=== PATIENT | female | born 1985 | race American Indian/Alaskan Native ===

== ENCOUNTER 2018-08-17 14:34 | Emergency (ER) | payer SELFPAY ==
--- NOTE | 2018-08-17 15:12 | Emergency Department Report ---
ED ENT HPI - General Chief complaint: Dental/Oral Stated complaint: TEETH/HEAD/NOSE PAIN Time Seen by Provider: 08/17/18 14:57 Source: patient Mode of arrival: Ambulatory Limitations: No Limitations - History of Present Illness Initial comments: Christine is a healthy 33-year-old female who had cold symptoms for several days. She has nasal congestion and right ear pain. + she has right tooth right sinus pain. Toothache right upper posterior right ridge. No shortness breath. Denies fever or trouble swallowing. Severe pain radiating to the right ear in spite Tylenol and ibuprofen. MD complaint: tooth pain, ear pain -: Gradual, days(s) (sever) Location: R ear, tooth # (1, 2, 3) Severity: severe Quality: aching, dull Consistency: constant Improves with: pressure Associated Symptoms: toothache - Related Data Home Medications Medication Instructions Recorded Confirmed Last Taken Pnv with Ca,No.71/Iron/FA 1 tab PO DAILY 06/24/14 06/25/14 06/08/14 [ Vitamin Tablet] Previous Rx's Medication Instructions Recorded Last Taken Type HYDROcodone/APAP 5-325 [[place] 1 each PO Q6H PRN #20 tablet 06/25/14 Unknown Rx 5-325 mg TAB] Ibuprofen [Motrin 800 MG tab] 800 mg PO Q8H PRN #90 tablet 06/25/14 Unknown Rx HYDROcodone/APAP 5-325 [[place] 1 each PO Q6HR PRN #10 tablet 08/17/18 Unknown Rx 5/325] Penicillin V Potassium 500 mg PO QID 10 Days #40 tablet 08/17/18 Unknown Rx Allergies Allergy/AdvReac Type Severity Reaction Status Date / Time No Known Allergies Allergy Verified 08/17/18 14:43 ED Dental HPI - General Chief complaint: Dental/Oral Stated complaint: TEETH/HEAD/NOSE PAIN Time Seen by Provider: 08/17/18 14:57 Source: patient Mode of arrival: Ambulatory Limitations: No Limitations - Related Data Home Medications Medication Instructions Recorded Confirmed Last Taken Pnv with Ca,No.71/Iron/FA 1 tab PO DAILY 06/24/14 06/25/14 06/08/14 [ Vitamin Tablet] Previous Rx's Medication Instructions Recorded Last Taken Type HYDROcodone/APAP 5-325 [[place] 1 each PO Q6H PRN #20 tablet 06/25/14 Unknown Rx 5-325 mg TAB] Ibuprofen [Motrin 800 MG tab] 800 mg PO Q8H PRN #90 tablet 06/25/14 Unknown Rx HYDROcodone/APAP 5-325 [[place] 1 each PO Q6HR PRN #10 tablet 08/17/18 Unknown Rx 5/325] Penicillin V Potassium 500 mg PO QID 10 Days #40 tablet 08/17/18 Unknown Rx Allergies Allergy/AdvReac Type Severity Reaction Status Date / Time No Known Allergies Allergy Verified 08/17/18 14:43 ED Review of Systems ROS: Stated complaint: TEETH/HEAD/NOSE PAIN Other details as noted in HPI Constitutional: denies: fever, malaise ENT: ear pain, dental pain, congestion. denies: throat pain Respiratory: denies: shortness of breath Cardiovascular: denies: chest pain ED Past Medical Hx - Past Medical History Previous Medical History?: No - Surgical History Past Surgical History?: No - Social History Smoking Status: Current Every Day Smoker Substance Use Type: None - Medications Home Medications: Home Medications Medication Instructions Recorded Confirmed Last Taken Type Pnv with Ca,No.71/Iron/FA 1 tab PO DAILY 06/24/14 06/25/14 06/08/14 History [ Vitamin Tablet] HYDROcodone/APAP 5-325 [[place] 1 each PO Q6H PRN #20 tablet 06/25/14 Unknown Rx 5-325 mg TAB] Ibuprofen [Motrin 800 MG tab] 800 mg PO Q8H PRN #90 tablet 06/25/14 Unknown Rx HYDROcodone/APAP 5-325 [[place] 1 each PO Q6HR PRN #10 tablet 08/17/18 Unknown Rx 5/325] Penicillin V Potassium 500 mg PO QID 10 Days #40 tablet 08/17/18 Unknown Rx ED Physical Exam - General Limitations: No Limitations General appearance: alert, in no apparent distress - Head Head exam: Present: atraumatic, normocephalic - Eye Eye exam: Present: normal appearance. Absent: scleral icterus, conjunctival injection - ENT ENT exam: Present: mucous membranes moist, other (right TM normal, right maxillay tenderness, no gum abscess) - Neck Neck exam: Present: normal inspection, full ROM. Absent: tenderness, meningismus - Respiratory Respiratory exam: Absent: respiratory distress - Neurological Exam Neurological exam: Present: alert, oriented X3 - Psychiatric Psychiatric exam: Present: normal affect, normal mood - Skin Skin exam: Present: warm, dry, intact, normal color ED Course Vital Signs 08/17/18 14:44 Temperature 98.6 F Pulse Rate 92 H Respiratory 18 Rate Blood Pressure 116/61 O2 Sat by Pulse 98 Oximetry ED Medical Decision Making - Medical Decision Making Ms Ho presents with dental infection and possible maxillary sinusitis. rx: pcn and norco recommended dental f/u Critical care attestation.: If time is entered above; I have spent that time in minutes in the direct care of this critically ill patient, excluding procedure time. ED Disposition Clinical Impression: Infected dental caries, Acute sinusitis Disposition: TO HOME OR SELFCARE Is pt being admited?: No Does the pt Need Aspirin: No Condition: Stable Instructions: Dental Abscess (ED), Sinusitis (ED) Prescriptions: HYDROcodone/APAP 5-325 [[place] 5/325] 1 each PO Q6HR PRN #10 tablet PRN Reason: Pain Penicillin V Potassium 500 mg PO QID 10 Days #40 tablet Referrals: [facility] [Outside] - 3-5 Days [facility] [Outside] - 3-5 Days
== END 2018-08-17 15:33 | disposition home or self-care (01) ==
LOC: ED 14:34
CPT/HCPCS: 99282

== ENCOUNTER 2018-09-28 11:13 | Emergency (ER) | payer OTHER ==
--- NOTE | 2018-09-28 12:04 | Emergency Department Report ---
Chief Complaint: Skin Rash Stated Complaint: RASH ALL OVER Time Seen by Provider: 09/28/18 12:03 - HPI History of Present Illness: RASH FOR 1 MONTH SHE WAS GIVEN PCN FOR TOOTH ISSUE SINCE THEN SHE HAD RASH NEW LESION LAST NIGHT ITHCY NO NONA RX NONE LMP ? ON SHOTS PSH NONE PMH NONE NAD MSE COMPLETED ?RING WORM MSE screening note: Focused history and physical exam performed. Due to findings the following was ordered: ED Disposition for MSE Condition: Stable
--- NOTE | 2018-09-28 15:19 | Emergency Department Report ---
ED Rash HPI - HPI Chief Complaint: Skin Rash Stated Complaint: RASH ALL OVER Time Seen by Provider: 09/28/18 12:03 Duration: 1 month Location: Back, Abdomen Suspected Cause: Medication Rash Symptoms: Yes Itching, No Facial Swelling, No Tongue/Oral Swelling, No Breathing Difficulties, No Choking Sensation, No Wheezing/Dyspnea, No Peeling, No Blistering, No Fever, No Lightheaded, No Malaise, No Myalgias Severity: moderate Other History: Pt is a 33 yo female who presents to the ED with c/o a rash present on the trunk that began 1 month ago. She says it first started with one spot. The patient states the rash is itchy. She states she noticed the rash after taking penicillin. The patient denies any throat swelling, SOB, or wheezing. The patient states she had bed bugs previously but the rash presented differently and she bought a new matress. The patient denies any new foods, soaps, or detergents. ED Review of Systems ROS: Stated complaint: RASH ALL OVER Other details as noted in HPI Comment: All other systems reviewed and negative ED Past Medical Hx - Past Medical History Previous Medical History?: No - Surgical History Past Surgical History?: No - Social History Smoking Status: Never Smoker Substance Use Type: None - Medications Home Medications: Home Medications Medication Instructions Recorded Confirmed Last Taken Type Hydroxyzine HCl [hydrOXYzine] 50 mg PO TID #30 tablet 09/28/18 Unknown Rx methylPREDNISolone [Medrol Dose 10 mg PO DAILY 5 Days #15 pack 09/28/18 Unknown Rx Fabio] Rash Exam - Exam General: Vital signs noted. No distress. Alert and acting appropriately. HEENT: No Periorbital Edema, No Conjuctival Injection, No Perioral Edema, No Tongue Edema, No Uvular Edema, No Compromised Airway, No Drooling Lungs: Yes Good Air Exchange, No Wheezes, No Ronchi, No Stridor, No Cough, No Labored Respirations, No Retractions, No Use of Accessory Muscles, No Other Abnormal Lung Sounds Heart: Yes Regular, No Murmur Skin: Yes Other (pt presents with a non scaly, non erythematous rash present to the abdomen and back, differening sizes of patches diffusely, no drainage, no crusting, darker pigmentation around the edges, no silvery scale, no tenderness), No Urticarial Rash Other: Positive: Abdomen Normal, Neurologic Normal ED Course Vital Signs 09/28/18 12:20 Temperature 97.6 F Pulse Rate 67 Respiratory 16 Rate Blood Pressure 105/66 O2 Sat by Pulse 100 Oximetry ED Medical Decision Making - Medical Decision Making Pt presents with rash on the trunk that began 1 month ago. Started as a larger lesion then spread diffusely. Rash is itching. No scaling. Pt noticed after taking penicillin. No new detergents, soaps, etc. Pt has replaced her mattress. Rash appears to look like pityriasis rosea. Will give pt medrol dose pack and hydroxyzine for itching. Will give pt referral to dermatology if rash persists. Advised to follow up with primary care doctor in the next 2-3 days. Critical care attestation.: If time is entered above; I have spent that time in minutes in the direct care of this critically ill patient, excluding procedure time. ED Disposition Clinical Impression: Pityriasis rosea-like drug eruption Disposition: - TO HOME OR SELFCARE Is pt being admited?: No Does the pt Need Aspirin: No Condition: Stable Instructions: Pityriasis rosea (ED) Additional Instructions: Follow up with your primary care doctor in the next two to three days. Take medication as prescribed. May follow up with dermatology if rash persists. Dr. Mayur Spivey, dermatology [phone] Prescriptions: Hydroxyzine HCl [hydrOXYzine] 50 mg PO TID #30 tablet methylPREDNISolone [Medrol Dose Fabio] 10 mg PO DAILY 5 Days #15 pack Referrals: CAROL ROTH MD [Primary Care Provider] - 3-5 Days Time of Disposition: 15:24 Print Language: MALAY
== END 2018-09-28 15:53 | disposition home or self-care (01) ==
LOC: ED 11:13
DX: L42 Pityriasis rosea (principal)
CPT/HCPCS: 99282

== ENCOUNTER 2021-02-02 19:43 | Outpatient (CLI) | payer MEDICAID, OTHER ==
[2021-02-02 20:11] VITALS: BP 103/63
[2021-02-02] MEDS ORDERED: LACTATED RINGERS 1,000 ML IV SCH (20:30)
[2021-02-02 22:20] LABS: Bacteria,Urine 1+ /HPF (Negative); Bilirubin,Urine NEG (Negative); Blood,Urine NEG (Negative); Color,Urine Yellow (Yellow); Mucus,Urine FEW /HPF; Protein,Urine <15 mg/dL mg/dL (Negative); Urobilinogen,Urine < 2.0 mg/dL (<2.0)
== END 2021-02-02 21:56 | disposition home or self-care (01) ==
LOC: TRG 19:43 → APU 19:49 → TRG 21:56
PROVIDERS: ATTEND Obstetrics & Gynecology
DX: Z34.93 Encounter for supervision of normal pregnancy, unspecified, third trimester (principal); Z3A.35 35 weeks gestation of pregnancy
CPT/HCPCS: 59025; 81001; 87086

== ENCOUNTER 2021-03-01 05:03 | Inpatient (IN) | payer MEDICAID ==
[2021-03-01] MEDS ORDERED: LACTATED RINGERS 1,000 ML IV ONE (05:52)
[2021-03-01] MEDS ORDERED: OXYTOCIN 10 UNIT/1 ML INJ IM PRN (07:17)
[2021-03-01] MEDS ORDERED: LIDOCAINE (2%) 20 MG/1 ML VIAL 20 ML MDV INFILTRATI NR (07:17)
[2021-03-01] MEDS ORDERED: NalbUPHINE 10 MG/1 ML INJ IV PRN (07:17)
[2021-03-01] MEDS ORDERED: LOPERAMIDE 2 MG CAP PO PRN (07:17)
[2021-03-01] MEDS ORDERED: miSOPROStol 200 MCG TAB PR PRN (07:17)
[2021-03-01] MEDS ORDERED: METHYLERGONOVINE MALEATE 0.2 MG/ML VIAL IM PRN (07:17)
[2021-03-01] MEDS ORDERED: TERBUTALINE 1 MG/1 ML INJ SUB-Q PRN (07:17)
[2021-03-01] MEDS ORDERED: CARBOPROST TROMETHAMINE 250 MCG/1 ML INJ IM PRN (07:17)
--- NOTE | 2021-03-01 07:23 | Ultrasound Report ---
Limited OB Ultrasound HISTORY: CHUCK. TECHNIQUE: Grayscale and color imaging performed. COMPARISON: None FINDINGS: There is a single viable intrauterine gestation with cephalic presentation. CHUCK is 10 cm. H eart rate is 131 bpm. On biophysical profile, the fetus received a score of 2 out of 2 for movement, posture/tone, and CHUCK. Breathing received a score of 0 out of 2. Total score was 6 out of 8. IMPRESSION: 1. Single viable intrauterine gestation as above. 2. Biophysical profile score of 6 out of 8. Signer Name: Antonio Chaparro MD Signed: 03/01/2021 7:19 AM Workstation Name: [id number]
[2021-03-01] MEDS ORDERED: LACTATED RINGERS 1,000 ML IV SCH (07:30)
--- NOTE | 2021-03-01 07:31 | History and Physical Report ---
History of Present Illness Date of examination: 03/01/21 Date of admission: 03/01/21 Chief complaint: painful ctx and desires epidural History of present illness: at 39.4wks by LMP c/w [facility] care [facility]. Pt c/o painful ctx and desires epidural. pt admits to movement, denies LOF or vag bleeding. Denies headache. Pt seen in triage and FHR category II and same improved after IV fluid bolus. BPP done in triage was 12/28 hence admission. labs with GBS neg, Rh positive, Rubella immune, HIV, RPR and HepBsAg negative. Past History Past Medical History: other (left axillary mass 4x3cm treated with bactrim this preg; Silent carrier for alpha thalassemia) Past Surgical History: no surgical history - Obstetrical History Expected Date of Delivery: 03/04/21 Actual Gestation: 39 Week(s) 4 Day(s) : 7 Hx # Term Pregnancies: 4 Spontaneous Abortions: 1 Induced : 1 Number of Living Children: 4 Medications and Allergies Allergies Allergy/AdvReac Type Severity Reaction Status Date / Time No Known Allergies Allergy Verified 08/17/18 14:43 Home Medications Medication Instructions Recorded Confirmed Last Taken Type Hydroxyzine HCl [hydrOXYzine] 50 mg PO TID #30 tablet 09/28/18 01/20/21 08:00 Rx methylPREDNISolone [Medrol Dose 10 mg PO DAILY 5 Days #15 pack 09/28/18 01/20/21 08:00 Rx Fabio] Pnv Plus Multivit Tab 1 mg PO DAILY 02/02/21 02/02/21 02/02/21 08:00 History Review of Systems All systems: negative (painful ctx) - Vital Signs Vital signs: Vital Signs Pulse BP Pulse Ox 69 113/74 100 03/01/21 05:25 03/01/21 05:25 03/01/21 05:25 Temp Pulse Resp BP Pulse Ox 98.2 F 83 18 113/74 93 03/01/21 05:26 03/01/21 07:05 03/01/21 05:26 03/01/21 05:26 03/01/21 07:05 - Physical Exam Breasts: Positive: deferred Cardiovascular: Regular rate Lungs: Positive: Normal air movement Abdomen: Positive: normal appearance, soft Genitourinary (Female): Positive: normal external genitalia Vulva: both: normal Vagina: Positive: normal moisture Uterus: Positive: enlarged Extremities: Positive: normal - Obstetrical FHR: category 1 Uterine Contraction Monitor Mode: External Cervical Dilatation: 4 (previously 1cm by triage nurse) Cervical Effacement Percentage: 70 station: -1 Results Result Diagrams: 03/01/21 07:00 All other labs normal. Assessment and Plan term IUP in latent labor, painful contractions, GBS neg and BPP 6/8 1. Admit to labor and delivery, augment with pitocin if pelvic unchanged in 2hrs. 2. Will send urine drug screen 3. may have epidural when desired Plan of care discussed, expect
[2021-03-01] MEDS ORDERED: BUTORPHANOL 2 MG/1 ML INJ ONE (07:42)
[2021-03-01 07:45] LABS: Hematocrit 36.4 % (30.3-42.9); Hemoglobin 12.3 gm/dl (10.1-14.3); Mean Corpuscular HGB Conc 34 % (30-34); Mean Corpuscular Volume 83 fl (79-97); Platelet Count 173 K/mm3 (140-440); Red Blood Count 4.37 M/mm3 (3.65-5.03); Red Cell Distribution Width 12.9 % (13.2-15.2)
[2021-03-01] MEDS ORDERED: ONDANSETRON 4 MG/2 ML INJ IV PRN ×2 (08:00→11:52)
[2021-03-01] MEDS ORDERED: OXYTOCIN DRIP 30 UNITS/500 ML BAG IV SCH ×2 (08:00)
[2021-03-01] MEDS ORDERED: ePHEDrine SULFATE 50 MG/1 ML INJ IV PRN ×2 (08:00→08:18)
[2021-03-01] MEDS ORDERED: PROMETHAZINE 25 MG TAB PO PRN ×2 (08:00→11:52)
[2021-03-01] MEDS ORDERED: BUTORPHANOL 2 MG/1 ML INJ IV PRN (08:00)
[2021-03-01] MEDS ORDERED: fentaNYL 100 MCG/2 ML INJ IV PRN (08:00)
--- NOTE | 2021-03-01 08:18 | Anesthesia Consultation ---
Anesthesia Consult and Med Hx Date of service: 03/01/21 - Airway Anesthetic Teeth Evaluation: Good ROM Head & Neck: Adequate Mental/Hyoid Distance: Adequate Mallampati Class: Class II Intubation Access Assessment: Probably Good - Pulmonary Exam CTA: Yes - Cardiac Exam Cardiac Exam: RRR - Pre-Operative Health Status ASA Pre-Surgery Classification: ASA2 Proposed Anesthetic Plan: Epidural - Pulmonary Hx Smoking: Yes Hx Asthma: No - Cardiovascular System Hx Hypertension: No - Central Nervous System Hx Seizures: No Hx Psychiatric Problems: No - Endocrine Hx Renal Disease: Yes (UTI with E. Coli) Hx Hypothyroidism: No Hx Hyperthyroidism: No - Hematic Hx Anemia: No Hx Sickle Cell Disease: No - Other Systems Hx Alcohol Use: No Hx Cancer: No
[2021-03-01] MEDS ORDERED: fentaNYL-BUPIV 2 MCG/ML-0.125% 200 MCG/100 ML BAG EPIDURAL SCH (09:00)
[2021-03-01] MEDS ORDERED: NALOXONE 2 MG/2 ML INJ IV PRN (09:00)
--- NOTE | 2021-03-01 09:07 | Progress Note ---
Labor Epidural - Labor Epidural Start Time: 08:31 Stop Time: 09:10 Performed by:: MAURA ROSALES Procedure: Patient is requesting epidural for labor pain. H&P, and labs reviewed. Procedure explained, questions answered, consent obtained. Patient in sitting position with blood pressure cuff and pulse ox on and working. Timeout performed immediately before start of procedure. Sterile chlorahexadine 0.5% prep/drape. 3 mL 1% lidocaine skin wheal at L[3]-L[4]. 18-gauge Aquacuetead epidural needle advanced to [id number] with saline at [7] cm. Epidural catheter advanced to [12] cm, positive aspiration for blood. Catheter removed and placement repeated in same fashion at L4-5. Negative aspiration for blood and csf, negative test dose 3 ml 1.5% lidocaine with epinephrine. Epidural dexmedetomidine [30] mcg administered. Sterile steri-strips and tegaderm applied, followed by tape reinforcement. Patient tolerated procedure well. Helio CARREON
[2021-03-01] MEDS ORDERED: MINERAL OIL 30 ML ORAL LIQD ONE (09:30)
--- NOTE | 2021-03-01 09:47 | Progress Note ---
Assessment and Plan A: IUP@ 39.4 wks GBS neg p: Continue monitoring AROM (thick mec) Notify peds Anticipate Subjective - Subjective Date of service: 03/01/21 Principal diagnosis: IUP@ 39.4wks Patient reports: movement normal Objective - Vital Signs Vital Signs: Vital Signs - 12hr 03/01/21 03/01/21 03/01/21 05:25 05:26 05:30 Temperature 98.2 F Pulse Rate 71 75 80 Respiratory 18 Rate Blood Pressure 113/74 Blood Pressure [Left] Blood Pressure 113/74 [Right] O2 Sat by Pulse 100 99 99 Oximetry O2 Sat by Pulse Oximetry [ Anterior Bilateral Throughout] 03/01/21 03/01/21 03/01/21 05:35 05:40 05:45 Temperature Pulse Rate 85 80 81 Respiratory Rate Blood Pressure Blood Pressure [Left] Blood Pressure [Right] O2 Sat by Pulse 99 99 100 Oximetry O2 Sat by Pulse Oximetry [ Anterior Bilateral Throughout] 03/01/21 03/01/21 03/01/21 05:50 05:55 06:00 Temperature Pulse Rate 80 80 79 Respiratory Rate Blood Pressure Blood Pressure [Left] Blood Pressure [Right] O2 Sat by Pulse 98 99 99 Oximetry O2 Sat by Pulse Oximetry [ Anterior Bilateral Throughout] 03/01/21 03/01/21 03/01/21 06:05 06:08 06:10 Temperature Pulse Rate 83 68 85 Respiratory Rate Blood Pressure Blood Pressure [Left] Blood Pressure [Right] O2 Sat by Pulse 98 87 100 Oximetry O2 Sat by Pulse Oximetry [ Anterior Bilateral Throughout] 03/01/21 03/01/21 03/01/21 06:15 06:20 06:21 Temperature Pulse Rate 88 75 78 Respiratory Rate Blood Pressure Blood Pressure [Left] Blood Pressure [Right] O2 Sat by Pulse 99 100 90 Oximetry O2 Sat by Pulse Oximetry [ Anterior Bilateral Throughout] 03/01/21 03/01/21 03/01/21 06:25 06:30 06:35 Temperature Pulse Rate 70 85 71 Respiratory Rate Blood Pressure Blood Pressure [Left] Blood Pressure [Right] O2 Sat by Pulse 99 99 100 Oximetry O2 Sat by Pulse Oximetry [ Anterior Bilateral Throughout] 03/01/21 03/01/21 03/01/21 06:40 06:45 06:50 Temperature Pulse Rate 69 74 67 Respiratory Rate Blood Pressure Blood Pressure [Left] Blood Pressure [Right] O2 Sat by Pulse 100 100 99 Oximetry O2 Sat by Pulse Oximetry [ Anterior Bilateral Throughout] 03/01/21 03/01/21 03/01/21 06:55 06:57 07:00 Temperature Pulse Rate 67 71 67 Respiratory Rate Blood Pressure Blood Pressure [Left] Blood Pressure [Right] O2 Sat by Pulse 98 86 100 Oximetry O2 Sat by Pulse Oximetry [ Anterior Bilateral Throughout] 03/01/21 03/01/21 03/01/21 07:05 07:54 07:55 Temperature Pulse Rate 83 67 89 Respiratory Rate Blood Pressure 109/66 Blood Pressure [Left] Blood Pressure [Right] O2 Sat by Pulse 93 88 99 Oximetry O2 Sat by Pulse Oximetry [ Anterior Bilateral Throughout] 03/01/21 03/01/21 03/01/21 07:57 08:00 08:01 Temperature 97.6 F Pulse Rate 86 81 Respiratory 16 Rate Blood Pressure Blood Pressure 109/66 [Left] Blood Pressure [Right] O2 Sat by Pulse 99 98 Oximetry O2 Sat by Pulse 99 Oximetry [ Anterior Bilateral Throughout] 03/01/21 03/01/21 03/01/21 08:05 08:10 08:12 Temperature Pulse Rate 100 H 89 75 Respiratory Rate Blood Pressure 107/58 Blood Pressure [Left] Blood Pressure [Right] O2 Sat by Pulse 99 98 Oximetry O2 Sat by Pulse Oximetry [ Anterior Bilateral Throughout] 03/01/21 03/01/21 03/01/21 08:15 08:20 08:25 Temperature Pulse Rate 75 77 79 Respiratory Rate Blood Pressure Blood Pressure [Left] Blood Pressure [Right] O2 Sat by Pulse 100 100 100 Oximetry O2 Sat by Pulse Oximetry [ Anterior Bilateral Throughout] 03/01/21 03/01/21 03/01/21 08:30 08:35 08:40 Temperature Pulse Rate 71 68 65 Respiratory Rate Blood Pressure Blood Pressure [Left] Blood Pressure [Right] O2 Sat by Pulse 99 99 100 Oximetry O2 Sat by Pulse Oximetry [ Anterior Bilateral Throughout] 03/01/21 03/01/21 03/01/21 08:45 08:50 08:55 Temperature Pulse Rate 76 67 48 L Respiratory Rate Blood Pressure Blood Pressure [Left] Blood Pressure [Right] O2 Sat by Pulse 100 100 100 Oximetry O2 Sat by Pulse Oximetry [ Anterior Bilateral Throughout] 03/01/21 03/01/21 03/01/21 08:59 09:00 09:01 Temperature Pulse Rate 74 70 70 Respiratory Rate Blood Pressure 102/57 93/53 Blood Pressure [Left] Blood Pressure [Right] O2 Sat by Pulse 100 Oximetry O2 Sat by Pulse Oximetry [ Anterior Bilateral Throughout] 03/01/21 03/01/21 03/01/21 09:03 09:05 09:06 Temperature Pulse Rate 65 70 67 Respiratory Rate Blood Pressure 89/53 90/50 Blood Pressure [Left] Blood Pressure [Right] O2 Sat by Pulse 100 Oximetry O2 Sat by Pulse Oximetry [ Anterior Bilateral Throughout] 03/01/21 03/01/21 03/01/21 09:10 09:12 09:14 Temperature Pulse Rate 59 L 52 L 53 L Respiratory Rate Blood Pressure 131/67 130/76 Blood Pressure [Left] Blood Pressure [Right] O2 Sat by Pulse 100 Oximetry O2 Sat by Pulse Oximetry [ Anterior Bilateral Throughout] 03/01/21 03/01/21 03/01/21 09:15 09:16 09:17 Temperature Pulse Rate 57 L 54 L 74 Respiratory Rate Blood Pressure 117/70 116/67 Blood Pressure [Left] Blood Pressure [Right] O2 Sat by Pulse 100 Oximetry O2 Sat by Pulse Oximetry [ Anterior Bilateral Throughout] 03/01/21 03/01/21 03/01/21 09:19 09:20 09:21 Temperature Pulse Rate 74 68 76 Respiratory Rate Blood Pressure 119/68 120/65 Blood Pressure [Left] Blood Pressure [Right] O2 Sat by Pulse 100 Oximetry O2 Sat by Pulse Oximetry [ Anterior Bilateral Throughout] 03/01/21 03/01/21 03/01/21 09:22 09:24 09:25 Temperature Pulse Rate 39 L 62 60 Respiratory Rate Blood Pressure 118/72 109/64 Blood Pressure [Left] Blood Pressure [Right] O2 Sat by Pulse 0 L 100 Oximetry O2 Sat by Pulse Oximetry [ Anterior Bilateral Throughout] 03/01/21 03/01/21 03/01/21 09:27 09:29 09:30 Temperature Pulse Rate 63 61 65 Respiratory Rate Blood Pressure 112/66 110/68 Blood Pressure [Left] Blood Pressure [Right] O2 Sat by Pulse 100 Oximetry O2 Sat by Pulse Oximetry [ Anterior Bilateral Throughout] 03/01/21 03/01/21 03/01/21 09:31 09:33 09:35 Temperature Pulse Rate 67 77 54 L Respiratory Rate Blood Pressure 110/57 119/60 106/58 Blood Pressure [Left] Blood Pressure [Right] O2 Sat by Pulse 100 Oximetry O2 Sat by Pulse Oximetry [ Anterior Bilateral Throughout] 03/01/21 09:40 Temperature Pulse Rate 59 L Respiratory Rate Blood Pressure 89/54 Blood Pressure [Left] Blood Pressure [Right] O2 Sat by Pulse 100 Oximetry O2 Sat by Pulse Oximetry [ Anterior Bilateral Throughout] - Exam Breasts: deferred Abdomen: Present: normal appearance, soft, normal bowel sounds Vulva: both: normal Uterus: Present: normal FHR: auscultation normal, category 1 Uterine Contraction Monitor Mode: External Cervical Dilatation: 6.5 Cervical Effacement Percentage: 80 station: -1 Uterine Contraction Frequency (min): regular Uterine Contraction Pattern: Regular Uterine Tone Measurement Phase: Resting Uterine Contraction Intensity: Strong/Firm Extremities: normal - Labs Labs: Abnormal Labs 03/01/21 07:00 WBC 12.1 H RDW 12.9 L Laboratory Results - last 24 hr 03/01/21 03/01/21 03/01/21 07:00 07:00 07:00 WBC 12.1 H RBC 4.37 Hgb 12.3 Hct 36.4 MCV 83 MCH 28 MCHC 34 RDW 12.9 L Plt Count 173 Syphilis IgG Antibody Nonreactive Blood Type AB POSITIVE Antibody Screen Negative
[2021-03-01 10:40] LABS: Amphetamine Screen,Urine Negative; Benzodiazepines Screen,Urine Negative; Cocaine Screen,Urine Negative; Methadone Screen,Urine Negative; Opiate Screen,Urine Negative
[2021-03-01 11:02] LABS: Cannabinoid Screen,Urine Positive
[2021-03-01] MEDS ORDERED: WITCH HAZEL/ GLYCERIN PAD TP PRN (11:52)
[2021-03-01] MEDS ORDERED: diphenhydrAMINE 25 MG CAP PO PRN (11:52)
[2021-03-01] MEDS ORDERED: MAGNESIUM HYDROXIDE (MOM) ORAL LIQD UDC PO PRN (11:52)
[2021-03-01] MEDS ORDERED: LANOLIN/ZINC/DIMETHICONE (LANSINOH) 7 GM TP PRN (11:52)
[2021-03-01] MEDS ORDERED: PROMETHAZINE 25 MG RECT SUPP PR PRN (11:52)
[2021-03-01] MEDS ORDERED: IBUPROFEN 600 MG TAB PO SCH (12:00)
--- NOTE | 2021-03-01 12:58 | Procedure Note ---
OB Delivery Note - Delivery Date of Delivery: 03/01/21 Surgeon: HODA CARLOS Estimated blood loss: <100cc - Vaginal Delivery presentation: vertex Delivery position: OP Intrapartum events: meconium, mult.variable deceleratio Delivery augmentation: rupture of membranes Delivery monitor: external FHT, external uterine Route of delivery: Delivery placenta: spontaneous Delivery cord: 3 umbilical vessels Episiotomy: none Delivery laceration: none Anesthesia: epidural Delivery comments: of a live viable vigorous female in OP position. Spontaneous delivery of head and shoulders over an intact perineum. placed on mom's chest for skin to skin bonding. Delayed cord clamping while nurse dried, suctioned, and stimulated baby. Cord was clamped x 2 and FOB was guided in cutting the cord. was then taken to infant warmer by NICU nurse for an initial assess. 8/9. Spontaneous delivery of an intact placenta with 3CV. FF@ U2 with fundal massage and IV Pitocin. EBL <100 cc. FW 3080 Gms. Mom and baby was left in stable condition with nurse. - A at 1 minute: 8 at 5 minutes: 9 Gender: Female
[2021-03-01] MEDS: ACETAMINOPHEN 325 MG TAB PO PRN ×2 (18:50→23:54)
[2021-03-01] MEDS: oxyCODONE /ACETAMINOPHEN 5-325MG TAB PO PRN (20:04)
[2021-03-01] MEDS ORDERED: MINERAL OIL 30 ML ORAL LIQD PO PRN (22:00)
[2021-03-02 01:05] LABS: Hematocrit 32.2 % (30.3-42.9); Hemoglobin 10.8 gm/dl (10.1-14.3)
[2021-03-02] MEDS: oxyCODONE /ACETAMINOPHEN 5-325MG TAB PO PRN ×2 (02:46→09:13)
[2021-03-02] MEDS ORDERED: TETANUS,DIPH,PERTUSS(ACELL) VACCINE 0.5 ML SYRINGE IM ONE (06:00)
[2021-03-02 08:38] VITALS: BP 97/65
--- NOTE | 2021-03-02 09:39 | Progress Note ---
Assessment and Plan A: S/P P: D/C home after SS consult per pt request Subjective - Subjective Date of service: 03/02/21 Principal diagnosis: s/p Patient reports: appetite normal, voiding normally, pain well controlled, flatus, ambulating normally [place]: doing well, bottle feeding Objective - Vital Signs Latest vital signs: Vital Signs Temp Pulse Resp BP BP Pulse Ox Pulse Ox 03/02/21 08:07 97.9 F 64 18 97/65 100 03/02/21 02:46 18 03/02/21 00:06 97.5 F L 59 L 20 92/52 99 03/01/21 23:54 18 03/01/21 21:16 97.6 F 60 20 114/57 99 03/01/21 20:20 0 L 03/01/21 20:04 20 03/01/21 15:37 0 L 03/01/21 14:45 98.2 F 85 20 97/60 100 03/01/21 13:46 63 100 03/01/21 13:41 64 100 03/01/21 13:37 62 102/62 03/01/21 13:36 68 100 03/01/21 13:31 56 L 100 03/01/21 13:26 60 100 03/01/21 13:22 54 L 105/56 03/01/21 13:21 56 L 99 03/01/21 13:16 60 100 03/01/21 13:11 57 L 100 03/01/21 13:07 53 L 103/66 03/01/21 13:06 62 99 03/01/21 13:01 54 L 100 03/01/21 12:56 58 L 100 03/01/21 12:52 64 99/61 03/01/21 12:51 68 99 03/01/21 12:46 59 L 100 03/01/21 12:41 63 100 03/01/21 12:37 75 100/65 03/01/21 12:36 60 99 03/01/21 12:31 75 98 03/01/21 12:26 76 100 03/01/21 12:22 77 100/63 03/01/21 12:21 65 100 03/01/21 12:16 71 99 03/01/21 12:11 77 100 03/01/21 12:07 62 102/62 03/01/21 12:06 64 100 03/01/21 12:01 79 99 03/01/21 11:56 78 99 03/01/21 11:51 81 100 03/01/21 11:46 82 100 03/01/21 11:41 81 100 03/01/21 11:36 108 H 100 03/01/21 11:31 81 100 03/01/21 11:26 94 H 88 03/01/21 11:22 83 113/72 03/01/21 11:21 66 100 03/01/21 11:19 59 L 83 L 03/01/21 11:15 86 99 03/01/21 11:10 89 100 03/01/21 11:05 81 100 03/01/21 11:00 73 97 03/01/21 10:55 66 100 03/01/21 10:51 83 111/68 03/01/21 10:50 73 99 03/01/21 10:45 81 87/51 98 03/01/21 10:40 86 99 03/01/21 10:35 86 99 03/01/21 10:31 76 110/77 03/01/21 10:30 71 100 03/01/21 10:25 74 100 03/01/21 10:20 67 100 03/01/21 10:15 69 100 03/01/21 10:10 67 106/60 100 03/01/21 10:05 67 105/60 100 03/01/21 10:00 66 100 03/01/21 09:57 71 103/57 03/01/21 09:55 70 97 03/01/21 09:51 77 121/54 03/01/21 09:50 70 98 03/01/21 09:46 72 117/53 03/01/21 09:45 80 100 03/01/21 09:40 59 L 89/54 100 Intake and Output 03/01/21 03/02/21 03/02/21 22:59 06:59 14:59 Intake Total 240 240 120 Output Total 450 500 Balance -210 -260 120 Intake: Oral 120 240 120 Intake, Free Water 120 Output: Urine 450 500 Void 450 500 Other: Total, Intake Amount 120 240 120 Total, Output Amount 450 500 # Voids Void 1 1 - Exam Breasts: Present: normal Abdomen: Present: normal appearance, soft, normal bowel sounds Vulva: both: normal Uterus: Present: normal, firm, fundal height below umbilicus Extremities: Present: normal
--- NOTE | 2021-03-02 09:49 | Discharge Summary ---
Providers - Providers Date of Admission: 03/01/21 08:10 Date of discharge: 03/02/21 Attending physician: SHONNA THRASHER 03/02/21 08:24 Consult to Case Management [CONS] Stat Services Needed at Discharge: [employer] Specialist Notified:: pt pos for THC S/P DAY 1 Primary care physician: SHONNA THRASHER Hospitalization Reason for admission: active labor, IUP at term Delivery: Episiotomy: none Laceration: none Other procedures: none complications: other (pos THC -SS consult) Discharge diagnosis: IUP at term delivered [place] baby: female Hospital course: Pt was admitted to [facility] and had a w/o pp complications.See H&P, delivery summary, and pp notes. Condition at discharge: Stable Disposition: DC-01 TO HOME OR SELFCARE Plan - Discharge Medications Prescriptions: Ibuprofen [Motrin 600 MG tab] 600 mg PO Q6H #30 tablet - Provider Discharge Summary Additional instructions: [] Smoking cessation referral if applicable(refer to patient education folder for contact #) [] Refer to [facility] Booklet Call your doctor immediately for: * Fever > 100.5 * Heavy vaginal bleeding ( >1 pad per hour) * Severe persistent headache * Shortness of breath * Reddened, hot, painful area to leg or breast * Drainage or odor from incision. * Keep incision clean and dry at all times and follow doctor's instructions regarding bathing/showering - Follow up plan Follow up: SHONNA THRASHER MD [Primary Care Provider] - 6 Weeks
--- NOTE | 2021-03-02 12:14 | Post Anesthesia Evaluation ---
- Post Anesthesia Evaluation Patient Participated: Yes Airway Patent: Yes Stable Respiratory Function: Yes Nausea/Vomiting: No Temp > 96.8F: Yes Pain Manageable: Yes Adequeate Hydration: Yes Anesthesia Complications: No Block Receding Appropriately: Yes
== END 2021-03-02 13:30 | disposition home or self-care (01) | DRG 775 ==
LOC: TRG 05:03 → APU 05:05 → LD 07:17 → TRG 07:17 → LD 07:26 → OBSVTOIN 08:10 → OB 14:13
PROVIDERS: ADMIT Obstetrics & Gynecology; ATTEND Obstetrics & Gynecology
PROC: 10E0XZZ Delivery of Products of Conception, External Approach (ICD-10-PCS; principal; 2021-03-01)
PROC: 10907ZC Drainage of Amniotic Fluid, Therapeutic from Products of Conception, Via Natural or Artificial Opening (ICD-10-PCS; 2021-03-01)
PROC: 3E0R3BZ Introduction of Anesthetic Agent into Spinal Canal, Percutaneous Approach (ICD-10-PCS; 2021-03-01)
PROC: 00HU33Z Insertion of Infusion Device into Spinal Canal, Percutaneous Approach (ICD-10-PCS; 2021-03-01)
PROC: 3E0234Z Introduction of Serum, Toxoid and Vaccine into Muscle, Percutaneous Approach (ICD-10-PCS; 2021-03-02)
DX: O77.0 Labor and delivery complicated by meconium in amniotic fluid (principal); O99.334 Smoking (tobacco) complicating childbirth; Z3A.39 39 weeks gestation of pregnancy; Z37.0 Single live birth; F17.200 Nicotine dependence, unspecified, uncomplicated; O76 Abnormality in fetal heart rate and rhythm complicating labor and delivery; Z20.822 Contact with and (suspected) exposure to COVID-19; Z23 Encounter for immunization
CPT/HCPCS: 36415; 76815; 76819; 80307; 85014; 85018; 85027; 86592; 86850; 86900; 86901; 99211; 99406; G0378; G0463; J0595; J2590; J7120; U0003